=== PATIENT | female | born 1975 | race Hispanic/Latino ===

== ENCOUNTER 2019-06-21 14:16 | Emergency (ER) | payer OTHER ==
--- NOTE | 2019-06-21 20:59 | Event Note ---
ED Screening Note Date of service: 06/21/19 Time: 20:55 ED Screening Note: This is a 43 F. that presents to the ER with abdominal pain, right flank pain, and vomiting x 2 days. Patient states seen at [facility]. Follow up with Dr. Negron, GI at [facility]. Diagnosed with bile duct prominence of 15 mm. This initial assessment/diagnostic orders/clinical plan/treatment(s) is/are subject to change based on patients health status, clinical progression and re- assessment by fellow clinical providers in the ED. Further treatment and workup at subsequent clinical providers discretion. Patient/guardian urged not to elope from the ED as their condition may be serious if not clinically assessed and managed. Initial orders include: Labs CT of abdomen
[2019-06-21 21:01] VITALS: BP 121/90
[2019-06-21 21:30] LABS: Basophils % (Auto) 0.5 % (0.0-1.8); Eosinophils % (Auto) 0.3 % (0.0-4.3); Lymphocytes # (Auto) 3.4 K/mm3 (1.2-5.4); Lymphocytes % (Auto) 41.3 % (13.4-35.0); Mean Corpuscular HGB Conc 37 % (30-34); Mean Corpuscular Volume 96 fl (79-97); Monocytes # (Auto) 0.7 K/mm3 (0.0-0.8); Monocytes % (Auto) 8.7 % (0.0-7.3); Platelet Count 337 K/mm3 (140-440); Red Blood Count 3.81 M/mm3 (3.65-5.03); Red Cell Distribution Width 13.4 % (13.2-15.2)
[2019-06-21 21:32] LABS: Hematocrit 36.5 % (30.3-42.9); Hemoglobin 13.4 gm/dl (10.1-14.3)
[2019-06-21 21:52] LABS: Alanine Aminotransferase 29 units/L (7-56); BUN/Creatinine Ratio 18; Blood Urea Nitrogen 16 mg/dL (7-17); Hemolysis Index 14
[2019-06-21] MEDS ORDERED: SODIUM CHLORIDE 0.9% 1000 ML 1,000 ML ONE (22:45)
[2019-06-21] MEDS ORDERED: ONDANSETRON 4 MG/2 ML INJ ONE (22:46)
[2019-06-21] MEDS: diphenhydrAMINE 50 MG/ML VIAL IV ONE (23:06)
[2019-06-21] MEDS: SODIUM CHLORIDE 0.9% 1000 ML 1,000 ML IV ONE (23:06)
[2019-06-21] MEDS: MORPHINE 4 MG/1 ML INJ IV ONE (23:06)
[2019-06-21] MEDS: PROCHLORPERAZINE EDISYLATE 10 MG/2 ML VIAL IV ONE (23:16)
--- NOTE | 2019-06-22 00:53 | Cat Scan Report ---
CT ABDOMEN AND PELVIS WITH IV CONTRAST INDICATION: Right-sided abdominal pain and right flank pain TECHNIQUE: Following the administration of intravenous contrast, multiple axial CT images of the abdo men and pelvis were acquired. Sagittal and coronal reformats were obtained. All CT performed at this facility utilize dose reduction techniques including automated exposure control, iterative reconstru ction and weight based dosing when appropriate to reduce patient radiation dose to as low as reasonab ly achievable. COMPARISON: CT of the abdomen and pelvis with contrast, 09/22/2013 FINDINGS: Limited imaging of the bilateral lung bases demonstrates no acute abnormality. Abdomen: There has been previous cholecystectomy. The common bile duct is prominent, likely secondary to postcholecystectomy state. The liver, spleen, pancreas, bilateral adrenal glands and bilateral ki dneys show no evidence of acute abnormality. There is no evidence of bowel obstruction. The appendix is not visualized and there has likely been previous appendectomy. Pelvis: No free fluid is seen within the pelvis. The urinary bladder appears normal. Bones and Soft Tissues: Evaluation of bony structures demonstrates no acute bony abnormality. Evaluat ion of soft tissue structures demonstrates no acute soft tissue abnormality. IMPRESSION: 1. No CT evidence of acute inflammatory or obstructive process within the abdomen or pelvis. Signer Name: Myriam Valverde MD Signed: 06/22/2019 12:48 AM Workstation Name: [id number]
--- NOTE | 2019-06-22 01:19 | Emergency Department Report ---
ED Abdominal Pain HPI - General Chief Complaint: Abdominal Pain Stated Complaint: VOMITING/DIARRHEA Time Seen by Provider: 06/21/19 20:54 Source: patient Mode of arrival: Ambulatory Limitations: No Limitations - History of Present Illness Initial Comments: This is a 43 F. that presents to the ER with abdominal pain, right flank pain, and vomiting x 2 days. Patient states seen at [facility]. Follow up with Dr. Acharya, GI at [facility]. Diagnosed with bile duct prominence of 15 mm. states pain is 7/10 , exacerbated by movement, palpationt and eating. pt denies fever or chills this is recurring problem for this patient. for past 3-4 years. MD Complaint: abdominal pain Onset/Timin -: days(s) Location: L flank Radiation: none Migration to: L flank Severity scale (0 -10): 7 Quality: aching Consistency: constant Improves With: nothing Worsens With: eating Context: other (chronic for past 3 yrs ) Associated Symptoms: nausea, vomiting. denies: dysuria, melena, hematuria - Related Data Home Medications Medication Instructions Recorded Confirmed Last Taken Propranolol [Inderal] 40 mg PO BID 09/22/13 09/22/13 09/21/13 09:00 Sertraline [Zoloft] 100 mg PO BID 09/22/13 09/22/13 09/21/13 09:00 Topiramate [Topamax] 100 mg PO BID 09/22/13 09/22/13 09/21/13 09:00 Previous Rx's Medication Instructions Recorded Last Taken Type Promethazine [Phenergan] 25 mg [place] QHS PRN #12 supp.rect 05/08/13 Unknown Rx Nitrofurantoin [place]/M-Cryst 100 mg PO Q12HR #14 capsule 09/22/13 Unknown Rx [Macrobid] HYDROcodone/APAP 5-325 [[place] 1 each PO Q6HR PRN #12 tablet 06/22/19 Unknown Rx 5-325 mg TAB] Allergies Allergy/AdvReac Type Severity Reaction Status Date / Time ketorolac tromethamine Allergy Itching Verified 05/08/13 16:09 [From Toradol] metoclopramide HCl Allergy Headache Verified 05/08/13 16:09 [From Reglan] ondansetron HCl [From Zofran] Allergy Itching Verified 05/08/13 16:09 ED Review of Systems ROS: Stated complaint: VOMITING/DIARRHEA Other details as noted in HPI Constitutional: denies: chills, fever Eyes: denies: eye pain, eye discharge, vision change ENT: denies: ear pain, throat pain Respiratory: denies: cough, shortness of breath, wheezing Cardiovascular: denies: chest pain, palpitations Endocrine: no symptoms reported Gastrointestinal: abdominal pain. denies: nausea, vomiting, constipation, melena, hematochezia Genitourinary: denies: urgency, dysuria, frequency, hematuria, discharge, dyspareunia Musculoskeletal: back pain (left flank pain). denies: joint swelling, arthra lgia Skin: denies: rash, lesions Neurological: denies: headache, weakness, paresthesias, vertigo Psychiatric: denies: anxiety, depression Hematological/Lymphatic: denies: easy bleeding, easy bruising ED Past Medical Hx - Past Medical History Previous Medical History?: Yes Hx Hypertension: Yes Hx Kidney Stones: Yes Additional medical history: migraines. DVT. Cecile's disease - Surgical History Past Surgical History?: Yes Hx Cholecystectomy: Yes Hx Appendectomy: Yes Additional Surgical History: hysterectomy - Social History Smoking Status: Never Smoker Substance Use Type: None - Medications Home Medications: Home Medications Medication Instructions Recorded Confirmed Last Taken Type Promethazine [Phenergan] 25 mg [place] QHS PRN #12 supp.rect 05/08/13 09/22/13 Unknown Rx Nitrofurantoin [place]/M-Cryst 100 mg PO Q12HR #14 capsule 09/22/13 Unknown Rx [Macrobid] Propranolol [Inderal] 40 mg PO BID 09/22/13 09/22/13 09/21/13 09:00 History Sertraline [Zoloft] 100 mg PO BID 09/22/13 09/22/13 09/21/13 09:00 History Topiramate [Topamax] 100 mg PO BID 09/22/13 09/22/13 09/21/13 09:00 History HYDROcodone/APAP 5-325 [[place] 1 each PO Q6HR PRN #12 tablet 06/22/19 Unknown Rx 5-325 mg TAB] ED Physical Exam - General Limitations: No Limitations General appearance: alert, in no apparent distress - Head Head exam: Present: atraumatic, normocephalic - Eye Eye exam: Present: normal appearance, PERRL, EOMI Pupils: Present: normal accommodation - ENT ENT exam: Present: mucous membranes moist - Neck Neck exam: Present: normal inspection - Respiratory Respiratory exam: Present: normal lung sounds bilaterally. Absent: respiratory distress, wheezes, rhonchi, chest wall tenderness - Cardiovascular Cardiovascular Exam: Present: regular rate, normal rhythm, normal heart sounds - GI/Abdominal GI/Abdominal exam: Present: soft, tenderness (RUQ ), normal bowel sounds. Absent: distended, guarding, rebound, rigid, bruit, hernia - Rectal Rectal exam: Present: deferred - Extremities Exam Extremities exam: Present: normal inspection, full ROM, normal capillary refill - Back Exam Back exam: Present: normal inspection, full ROM, tenderness, CVA tenderness (L). Absent: CVA tenderness (R), muscle spasm, vertebral tenderness, rash noted - Neurological Exam Neurological exam: Present: alert, oriented X3, CN II-XII intact, normal gait - Psychiatric Psychiatric exam: Present: normal affect, normal mood - Skin Skin exam: Present: warm, dry, intact, normal color. Absent: rash ED Course Vital Signs 06/21/19 06/21/19 06/21/19 14:24 20:59 21:01 Temperature 98.1 F 97.8 F Pulse Rate 112 H 101 H Respiratory 18 20 Rate Blood Pressure 121/88 121/90 O2 Sat by Pulse 96 96 Oximetry 06/21/19 23:06 Temperature Pulse Rate Respiratory 18 Rate Blood Pressure O2 Sat by Pulse Oximetry ED Medical Decision Making - Lab Data Result diagrams: 06/21/19 21:05 06/21/19 21:05 Lab Results 06/21/19 06/21/19 06/21/19 Range/Units 21:05 21:05 21:05 WBC 8.1 (4.5-11.0) K/mm3 RBC 3.81 (3.65-5.03) M/mm3 Hgb 13.4 (10.1-14.3) gm/dl Hct 36.5 (30.3-42.9) % MCV 96 (79-97) fl MCH 35 H (28-32) pg MCHC 37 H (30-34) % RDW 13.4 (13.2-15.2) % Plt Count 337 (140-440) K/mm3 Lymph % (Auto) 41.3 H (13.4-35.0) % [place] % (Auto) 8.7 H (0.0-7.3) % Eos % (Auto) 0.3 (0.0-4.3) % Baso % (Auto) 0.5 (0.0-1.8) % Lymph # 3.4 (1.2-5.4) K/mm3 [place] # 0.7 (0.0-0.8) K/mm3 Eos # 0.0 (0.0-0.4) K/mm3 Baso # 0.0 (0.0-0.1) K/mm3 Seg Neutrophils % 49.2 (40.0-70.0) % Seg Neutrophils # 4.0 (1.8-7.7) K/mm3 Sodium 140 (137-145) mmol/L Potassium 3.9 (3.6-5.0) mmol/L Chloride 103.7 (98-107) mmol/L Carbon Dioxide 21 L (22-30) mmol/L Anion Gap 19 mmol/L BUN 16 (7-17) mg/dL Creatinine 0.9 (0.7-1.2) mg/dL Estimated GFR > 60 ml/min BUN/Creatinine Ratio 18 % Glucose 97 (65-100) mg/dL Calcium 10.0 (8.4-10.2) mg/dL Total Bilirubin 0.40 (0.1-1.2) mg/dL AST 19 (5-40) units/L ALT 29 (7-56) units/L Alkaline Phosphatase 98 (35-129) units/L Total Protein 8.0 (6.3-8.2) g/dL Albumin 5.0 (3.9-5) g/dL Albumin/Globulin Ratio 1.7 % Lipase 27 (13-60) units/L - Radiology Data Radiology results: report reviewed, image reviewed CT ABDOMEN AND PELVIS WITH IV CONTRAST INDICATION: Right-sided abdominal pain and right flank pain TECHNIQUE: Following the administration of intravenous contrast, multiple axial CT images of the abdomen and pelvis were acquired. Sagittal and coronal reformats were obtained. All CT performed at this facility utilize dose reduction techniques including automated exposure control, iterative reconstruction and weight based dosing when appropriate to reduce patient radiation dose to as low as reasonably achievable. COMPARISON: CT of the abdomen and pelvis with contrast, 09/22/2013 FINDINGS: Limited imaging of the bilateral lung bases demonstrates no acute abnormality. Abdomen: There has been previous cholecystectomy. The common bile duct is prominent, likely secondary to postcholecystectomy state. The liver, spleen, pancreas, bilateral adrenal glands and bi lateral kidneys show no evidence of acute abnormality. There is no evidence of bowel obstruction. The appendix is not visualized and there has likely been previous appendectomy. Pelvis: No free fluid is seen within the pelvis. The urinary bladder appears normal. Bones and Soft Tissues: Evaluation of bony structures demonstrates no acute bony abnormality. Evaluation of soft tissue structures demonstrates no acute soft tissue abnormality. IMPRESSION: 1. No CT evidence of acute inflammatory or obstructive process within the abdomen or pelvis. Signer Name: Myriam Valverde MD Signed: 06/22/2019 12:48 AM Workstation Name: [id number] Transcribed By: EB Dictated By: Myriam Valverde MD Electronically Authenticated By: Myriam Valverde MD Signed Date/Time: 06/22/1949 DD/ TD/TT: US RUQ : normal no gall stones, no sludge, no fluid collection. CBC: 0.07mm (normal) no abnormalities. - Medical Decision Making consulted GI Dr. Acharya, who follows patient as GI Specialist, CT and US are normal. all labs normal, recommendation hydrocodone po prn pain , follow up with Dr. Elizondo in 2 days. , pt symptoms are improved, pt will be dc'd to home stable condition at this time. Critical care attestation.: If time is entered above; I have spent that time in minutes in the direct care of this critically ill patient, excluding procedure time. ED Disposition Clinical Impression: Abdominal pain Qualifiers: Abdominal location: right upper quadrant Qualified Code(s): R10.11 - Right upper quadrant pain Disposition: DC-01 TO HOME OR SELFCARE Is pt being admited?: No Does the pt Need Aspirin: No Condition: Stable Instructions: Abdominal Pain (ED) Prescriptions: HYDROcodone/APAP 5-325 [[place] 5-325 mg TAB] 1 each PO Q6HR PRN #12 tablet PRN Reason: Pain Referrals: CAITLYN KELLER PA [Primary Care Provider] - 3-5 Days STANLEY ACHARYA MD [Staff Physician] - 3-5 Days Forms: Work/School Release Form(ED) Time of Disposition: 01:51
--- NOTE | 2019-06-22 01:36 | Ultrasound Report ---
ULTRASOUND ABDOMEN, LIMITED (RIGHT UPPER QUADRANT), 06/22/2019 INDICATION: Right upper quadrant pain. COMPARISON: CT of the abdomen and pelvis, 06/21/2019 FINDINGS: Pancreas: Visualized portion shows no significant abnormality. Liver: The liver is enlarged measuring a maximum craniocaudal dimension of 19.5 cm. Gallbladder: The gallbladder has been removed. Bile ducts: Common Bile Duct is mildly dilated to a caliber of 7-8 mm. Free fluid: None. Additional Findings: None. IMPRESSION: 1. Cholecystectomy. 2. Hepatomegaly. Signer Name: Myriam Valverde MD Signed: 06/22/2019 1:31 AM Workstation Name: [id number]
== END 2019-06-22 02:07 | disposition home or self-care (01) ==
LOC: ED 14:16
DX: R10.9 Unspecified abdominal pain (principal); I10 Essential (primary) hypertension; R11.10 Vomiting, unspecified; N20.0 Calculus of kidney; G43.909 Migraine, unspecified, not intractable, without status migrainosus; Z90.49 Acquired absence of other specified parts of digestive tract; Z90.710 Acquired absence of both cervix and uterus; Z79.899 Other long term (current) drug therapy; Z88.8 Allergy status to other drugs, medicaments and biological substances
CPT/HCPCS: 36415; 74177; 76705; 80053; 83690; 85025; 96361; 96374; 96375; 99284; J0780; J1200; J2270; J7030; Q9967; J2405